=== PATIENT | male | born 1990 | race Caucasian/White ===

== ENCOUNTER 2017-09-25 10:21 | Emergency (ER) | payer OTHER ==
[2017-09-25] MEDS ORDERED: NS 1,000 ML IV ONE ×2 (10:33→11:56)
--- NOTE | 2017-09-25 10:35 | EDPHY ---
H & P Stated Complaint: periumb pain x 5 days, N/V/D Time Seen by Provider: 09/25/17 10:29 HPI/ROS: CHIEF COMPLAINT: Abdominal pain, vomiting, diarrhea HISTORY OF PRESENT ILLNESS: The patient presents to the ED with abdominal pain , vomiting and diarrhea. The patient has been experiencing symptoms over the past 5 days. He complains of a generalized abdominal pain and decreased appetite. He reports subjective fevers. The patient denies any cough or congestion. He occasionally uses doxycycline for management of acne. The patient denies any recent travel outside the [place]. The patient denies any recent medication changes. The patient has no significant abdominal surgical history. REVIEW OF SYSTEMS: A comprehensive 10 point review of systems is otherwise negative aside from elements mentioned in the history of present illness. Source: Patient Exam Limitations: No limitations - Personal History Current Tetanus/Diphtheria Vaccine: No Current Tetanus Diphtheria and Acellular Pertussis (TDAP): No - Medical/Surgical History Hx Asthma: No Hx Chronic Respiratory Disease: No Hx Diabetes: No Hx Cardiac Disease: No Hx Renal Disease: No Hx Cirrhosis: No Hx Alcoholism: No Hx HIV/AIDS: No Hx Splenectomy or Spleen Trauma: No Other PMH: denies - Social History Smoking Status: Current some day smoker - Physical Exam Exam: General Appearance: Alert, no distress Eyes: Pupils equal and round no pallor or injection ENT, Mouth: Mucous membranes moist Respiratory: There are no retractions, lungs are clear to auscultation Cardiovascular: Regular rate and rhythm Gastrointestinal: Mild generalized abdominal tenderness, no rebound or guarding , normal bowel sounds Neurological: 5/5 strength all 4 extremities Skin: Warm and dry, no rashes Musculoskeletal: Neck is supple nontender Extremities: symmetrical, full range of motion Constitutional: Initial Vital Signs Temperature (C) 36.7 C 09/25/17 10:24 Heart Rate 78 09/25/17 10:24 Respiratory Rate 16 09/25/17 10:24 Blood Pressure 112/78 09/25/17 10:24 O2 Sat (%) 98 09/25/17 10:24 O2 Delivery Mode Room Air Allergies/Adverse Reactions: Penicillins Allergy (Mild, Verified 05/05/09 19:37) Home Medications: Medication Instructions Recorded Ondansetron Odt [Zofran Odt] 4 mg PO Q4PRN PRN #20 tab 09/25/17 Medical Decision Making ED Course/Re-evaluation: The patient presents to the ED with several days of abdominal pain, loose stools and nausea. The patient has no significant past medical history. The patient's laboratory studies are unremarkable. Given his vague abdominal tenderness he was offered CT scan of the abdomen pelvis which he declines. I find no clinical evidence of acute appendicitis currently. I do feel it is reasonable to treat the patient empirically for presumed enteritis with NSAIDs, Zofran and Imodium. The patient has been instructed that he should in to the ED for markedly worsening symptoms or other concerns as this may be the sign of a more serious conditions such as appendicitis. Re-evaluated the patient at 1:30 p.m.. His abdominal examination is reassuring. I think it is reasonable to defer imaging at this point time. The patient has been given customary return precautions. Differential Diagnosis: Differential diagnosis considered includes mesenteric adenitis, gastroenteritis , appendicitis, dehydration, metabolic derangement - Data Points Laboratory Results: Laboratory Results 09/25/17 10:35 09/25/17 10:35 09/25/17 09/25/17 09/25/17 11:10 10:35 10:35 WBC 7.89 10^3/uL 10^3/uL (3.80-9.50) RBC 5.67 10^6/uL 10^6/uL (4.40-6.38) Hgb 17.4 g/dL g/dL (13.7-17.5) Hct 48.4 % % (40.0-51.0) MCV 85.4 fL fL (81.5-99.8) MCH 30.7 pg pg (27.9-34.1) MCHC 36.0 g/dL g/dL (32.4-36.7) RDW 11.2 % L % (11.5-15.2) Plt Count 250 10^3/uL 10^3/uL (150-400) MPV 9.4 fL fL (8.7-11.7) Neut % (Auto) 69.1 % % (39.3-74.2) Lymph % (Auto) 20.4 % % (15.0-45.0) [place] % (Auto) 6.8 % % (4.5-13.0) Eos % (Auto) 2.5 % % (0.6-7.6) Baso % (Auto) 0.8 % % (0.3-1.7) Nucleat RBC Rel Count 0.0 % % (0.0-0.2) Absolute Neuts (auto) 5.45 10^3/uL 10^3/uL (1.70-6.50) Absolute Lymphs (auto) 1.61 10^3/uL 10^3/uL (1.00-3.00) Absolute Monos (auto) 0.54 10^3/uL 10^3/uL (0.30-0.80) Absolute Eos (auto) 0.20 10^3/uL 10^3/uL (0.03-0.40) Absolute Basos (auto) 0.06 10^3/uL 10^3/uL (0.02-0.10) Absolute Nucleated RBC 0.00 10^3/uL 10^3/uL (0-0.01) Immature Gran % 0.4 % % (0.0-1.1) Immature Gran # 0.03 10^3/uL 10^3/uL (0.00-0.10) Sodium 141 mEq/L mEq/L (135-145) Potassium 4.4 mEq/L mEq/L (3.3-5.0) Chloride 104 mEq/L mEq/L (97-110) Carbon Dioxide 28 mEq/l mEq/l (22-31) Anion Gap 9 mEq/L mEq/L (8-16) BUN 13 mg/dL mg/dL (7-23) Creatinine 0.9 mg/dL mg/dL (0.7-1.3) Estimated GFR > 60 Glucose 87 mg/dL mg/dL (70-100) Calcium 9.8 mg/dL mg/dL (8.5-10.4) Total Bilirubin 1.2 mg/dL mg/dL (0.1-1.4) Conjugated Bilirubin 0.2 mg/dL mg/dL (0.0-0.5) Unconjugated Bilirubin 1.0 mg/dL mg/dL (0.0-1.1) AST 26 IU/L IU/L (17-59) ALT 38 IU/L IU/L (21-72) Alkaline Phosphatase 62 IU/L IU/L (38-126) Total Protein 7.1 g/dL g/dL (6.3-8.2) Albumin 4.4 g/dL g/dL (3.5-5.0) Lipase 42 IU/L IU/L (23-300) Urine Color YELLOW Urine Appearance CLEAR Urine pH 5.0 (5.0-7.5) Ur Specific [place] 1.021 (1.002-1.030) Urine Protein NEGATIVE (NEGATIVE) Urine Ketones NEGATIVE (NEGATIVE) Urine Blood NEGATIVE (NEGATIVE) Urine Nitrate NEGATIVE (NEGATIVE) Urine Bilirubin NEGATIVE (NEGATIVE) Urine Urobilinogen NEGATIVE EU EU (0.2-1.0) Ur Leukocyte Esterase NEGATIVE (NEGATIVE) Urine Glucose NEGATIVE (NEGATIVE) Medications Given: Discontinued Medications Sodium Chloride (Ns) 1,000 mls @ 0 mls/hr IV ONCE ONE; Wide Open PRN Reason: Protocol Stop: 09/25/17 10:34 Last Admin: 09/25/17 10:35 Dose: 1,000 mls Sodium Chloride (Ns) 1,000 mls @ 0 mls/hr IV EDNOW ONE; Wide Open PRN Reason: Protocol Stop: 09/25/17 11:57 Last Admin: 09/25/17 12:06 Dose: 1,000 mls Ketorolac Tromethamine (Toradol) 30 mg IVP EDNOW ONE Stop: 09/25/17 11:57 Last Admin: 09/25/17 12:04 Dose: 30 mg Departure - Departure Disposition: Home, Routine, Self-Care Clinical Impression: Abdominal pain, Gastroenteritis Condition: Good Instructions: Gastroenteritis (ED) Additional Instructions: Sometimes we are unable to diagnose an obvious cause of abdominal pain in the Emergency Department. Based upon our evaluation today, I believe your having symptoms secondary to mild intestinal infection. Because more serious conditions can be difficult to diagnose early in the course of their presentation, we ask that you return to the Emergency Department in 8-12 hours for a recheck if you are still having pain. This is necessary to exclude the development of a more serious condition such as appendicitis or other intra- abdominal emergency. In the event your pain markedly increases before that time or you develop intractable vomiting or fever return to the Emergency Department immediately. Take Ibuprofen or Motrin 600 mg by mouth three times a day. Zofran as needed for nausea Imodium as needed for diarrhea You have been given the number of our on-call general surgeon if you continue to have any ongoing mild abdominal pain. Referrals: Jose Cardenas MD [Medical Doctor] - As per Instructions
[2017-09-25 10:47] LABS: PLATELET COUNT 250 10^3/uL (150-400)
[2017-09-25] MEDS ORDERED: KETOROLAC 30 MG/1 ML SDV IVP ONE (11:56)
[2017-09-25] MEDS ORDERED: IOPAMIDOL (ISOVUE-300) 100 ML BTL ONE (11:59)
[2017-09-25 13:52] VITALS: BP 127/66
== END 2017-09-25 13:52 | disposition home or self-care (01) ==
DX: K52.9 Noninfective gastroenteritis and colitis, unspecified (principal); F17.200 Nicotine dependence, unspecified, uncomplicated; E86.9 Volume depletion, unspecified
CPT/HCPCS: 96374; J1885; Q9967